=== PATIENT | male | born 1990 | race Caucasian/White ===

== ENCOUNTER 2017-10-15 04:27 | Emergency (ER) | payer BC ==
[~2017-10-15] VITALS: Ht 180.3 cm; Wt 100.0 kg
[2017-10-15] MEDS ORDERED: HYDROcodone/acetaminophen 10/325mg tab PO ONE (05:10)
[2017-10-15] MEDS ORDERED: HYDR-3965 PO (05:51)
[2017-10-15] MEDS ORDERED: IBUP-1984 PO (05:51)
[2017-10-15 06:07] VITALS: BP 128/68
== END 2017-10-15 06:10 | disposition home or self-care (01) ==
LOC: ER 04:29
DX: S06.0X9A Concussion with loss of consciousness of unspecified duration, initial encounter (principal); S09.8XXA Other specified injuries of head, initial encounter; S00.91XA Abrasion of unspecified part of head, initial encounter; W19.XXXA Unspecified fall, initial encounter; Y93.89 Activity, other specified; Y92.89 Other specified places as the place of occurrence of the external cause; Y99.8 Other external cause status
CPT/HCPCS: 70450; 99284

== ENCOUNTER 2022-09-21 17:44 | Emergency (ER) | payer BC ==
[~2022-09-21] VITALS: Ht 181.6 cm; Wt 99.1 kg
[2022-09-21 18:06] VITALS: BP 151/101
[2022-09-21 18:15] LABS: BASOPHILS % (AUTO) 0.7 % (0-1); EOSINOPHILS # (AUTO) 0.1 X10'3 (0-0.9); HEMATOCRIT 49.2 % (42.0-52.0); HEMOGLOBIN 16.4 g/dl (14.0-17.9); LYMPHOCYTES # (AUTO) 2.1 X10'3 (1.1-4.8); LYMPHOCYTES % (AUTO) 32.9 % (21-51); MEAN CORPUSCULAR HEMOGLOBIN 29.2 PG (27.0-31.0); MEAN CORPUSCULAR HGB CONC 33.3 g/dL (33.0-36.5); MEAN CORPUSCULAR VOLUME 87.7 FL (78-98); MEAN PLATELET VOLUME 8.2 FL (7.4-10.4); MONOCYTES # (AUTO) 0.7 X10'3 (0-0.9); MONOCYTES % (AUTO) 10.4 % (2-12); NEUTROPHILS # (AUTO) 3.4 X10'3 (1.8-7.7); PLATELET COUNT 306 X10'3 (140-440); RED BLOOD COUNT 5.61 X10'6 (4.70-6.10); RED CELL DISTRIBUTION WIDTH 13.6 % (11.5-14.5); WHITE BLOOD COUNT 6.3 X10'3 (4.5-11.0)
[2022-09-21 18:36] LABS: ALANINE AMINOTRANSFERASE 96 U/L (12-78); ALBUMIN 4.8 G/DL (3.4-5.0); ALBUMIN/GLOBULIN RATIO 1.2 (1.1-1.5); ALKALINE PHOSPHATASE 85 IU/L (46-116); ANION GAP 11 (8-16); ASPARTATE AMINO TRANSFERASE 34 U/L (10-37); BILIRUBIN,TOTAL 0.6 MG/DL (0.1-1.0); BLOOD UREA NITROGEN 10 MG/DL (7-18); BUN/CREATININE RATIO 9.9 (10.0-20.0); CALCIUM 9.4 MG/DL (8.5-10.1); CHLORIDE 102 MMOL/L (99-107); CREATININE 1.01 MG/DL (0.60-1.10); GLUCOSE 97 MG/DL (70-104); POTASSIUM 3.5 MMOL/L (3.5-5.1); SODIUM 140 MMOL/L (135-145); TOTAL CARBON DIOXIDE 27.5 MMOL/L (24-32); TOTAL PROTEIN 8.8 G/DL (6.4-8.2); eGFR 87 ML/MIN
[2022-09-21 18:42] LABS: MAGNESIUM 2.3 MG/DL (1.5-2.4)
[2022-09-21 20:53] LABS: D-DIMER < 0.19 MG/L FEU (0-0.50)
== END 2022-09-21 21:49 | disposition home or self-care (01) ==
LOC: ER 17:44
DX: R07.9 Chest pain, unspecified (principal)
CPT/HCPCS: 36415; 80053; 83735; 83880; 84484; 85025; 85379; 93005; 99284